=== PATIENT | male | born 1960 | race Hispanic/Latino ===

== ENCOUNTER 2019-07-28 21:34 | Emergency (ER) | payer OTHER ==
[2019-07-28 22:03] LABS: BASOPHILS % (AUTO) 0.3 % (0.0-5.0); EOSINOPHILS % (AUTO) 0.6 % (0.0-8.0); HEMATOCRIT 46.4 % (42-54); LYMPHOCYTES % (AUTO) 13.7 % (21.0-51.0); MEAN CORPUSCULAR HEMOGLOBIN 31.9 pg (27.0-33.0); MEAN CORPUSCULAR HGB CONC 34.7 g/dL (32.0-36.0); MEAN CORPUSCULAR VOLUME 92.1 fL (79-99); MONOCYTES % (AUTO) 3.8 % (3.0-13.0); NEUTROPHILS % (AUTO) 81.6 % (40.0-77.0); NUCLEATED RED BLOOD CELLS 0.1 % (0.0-0.19); PLATELET COUNT (AUTO) 236 K/uL (130-400); RED BLOOD CELL COUNT(AUTO) 5.04 MIL/uL (4.50-6.20); RED CELL DISTRIBUTION WIDTH 12.6 % (11.0-15.5); WHITE BLOOD COUNT (AUTO) 10.7 K/uL (4.8-10.8)
[2019-07-28] MEDS ORDERED: ONDANSETRON HCL 4 MG/2 ML VIAL ONE (22:09)
[2019-07-28] MEDS ORDERED: ASPIRIN 325 MG TABLET ONE (22:10)
[2019-07-28 22:12] LABS: CREATININE 1.2 mg/dL (0.5-1.5); POTASSIUM 3.8 mmol/L (3.5-5.1)
[2019-07-28 22:14] LABS: AMYLASE 84 U/L (25-115); LIPASE 301 U/L (114-286)
[2019-07-28 22:17] LABS: ALBUMIN 3.4 g/dL (3.5-5.0); BILIRUBIN,TOTAL 0.8 mg/dL (0.2-1.0); INR 0.95 (0.85-1.15); PARTIAL THROMBOPLASTIN TIME 21.7 SEC (26.3-35.5); TOTAL PROTEIN, SERUM 7.4 g/dL (6.0-8.3)
[2019-07-28] MEDS ORDERED: SODIUM CHLORIDE 0.9% 1000ML 2,000 ML IV ONE (22:59)
[2019-07-28] MEDS ORDERED: FAMOTIDINE/PF 20 MG/2 ML VIAL IV ONE (23:02)
[2019-07-28] MEDS ORDERED: METOCLOPRAMIDE 10 MG/2 ML VIAL ONE (23:02)
== END 2019-07-29 00:45 | disposition home or self-care (01) ==
LOC: EDH 21:34
DX: T67.6XXA Heat fatigue, transient, initial encounter (principal); E86.9 Volume depletion, unspecified; R10.13 Epigastric pain; R11.2 Nausea with vomiting, unspecified; X58.XXXA Exposure to other specified factors, initial encounter; Y93.89 Activity, other specified; Y92.89 Other specified places as the place of occurrence of the external cause; Y99.8 Other external cause status
CPT/HCPCS: 36415; 71045; 80053; 82150; 82550; 83690; 84484; 85025; 85610; 85730; 93005; 96361; 96374; 96375; 99285; J2405; J2765; J3490; J7030

== ENCOUNTER 2022-07-31 05:45 | Emergency (ER) | payer OTHER ==
[~2022-07-31] VITALS: Ht 167.6 cm; Wt 91.6 kg
[2022-07-31 06:46] LABS: BASOPHILS % (AUTO) 0.5 % (0.0-5.0); EOSINOPHILS % (AUTO) 2.2 % (0.0-8.0); HEMATOCRIT 48.5 % (42-54); LYMPHOCYTES % (AUTO) 24.3 % (21.0-51.0); MEAN CORPUSCULAR HEMOGLOBIN 32.4 pg (27.0-33.0); MEAN CORPUSCULAR HGB CONC 35.1 g/dL (32.0-36.0); MEAN CORPUSCULAR VOLUME 92.4 fL (79-99); MONOCYTES % (AUTO) 7.9 % (3.0-13.0); NEUTROPHILS % (AUTO) 64.9 % (40.0-77.0); PLATELET COUNT (AUTO) 230 K/uL (130-400); RED BLOOD CELL COUNT(AUTO) 5.25 MIL/uL (4.50-6.20); RED CELL DISTRIBUTION WIDTH 12.8 % (11.0-15.5); WHITE BLOOD COUNT (AUTO) 9.4 K/uL (4.8-10.8)
[2022-07-31 06:50] LABS: ALBUMIN 3.4 g/dL (3.5-5.0); CREATININE 1.2 mg/dL (0.5-1.5); POTASSIUM 3.7 mmol/L (3.5-5.1); TOTAL PROTEIN, SERUM 6.7 g/dL (6.0-8.3)
[2022-07-31 07:52] VITALS: BP 144/70
[2022-07-31] MEDS ORDERED: TAMS-1 PO (11:22)
[2022-07-31] MEDS ORDERED: NAPR375T6 PO (11:22)
== END 2022-07-31 11:40 | disposition home or self-care (01) ==
LOC: EDH 05:45
DX: N20.0 Calculus of kidney (principal)
CPT/HCPCS: 36415; 71045; 74018; 74176; 80053; 84484; 85025; 93005

== ENCOUNTER 2023-06-23 04:24 | Emergency (ER) | payer OTHER ==
[~2023-06-23] VITALS: Ht 167.6 cm; Wt 88.5 kg
[~2023-06-23 04:24] MED LIST: NAPR375T6 PO; TAMS-1 PO
[2023-06-23] MEDS ORDERED: ONDANSETRON 4MG INJ ONE (04:40)
[2023-06-23] MEDS ORDERED: MORPHINE 4 MG SYG ONE (04:40)
[2023-06-23 04:47] LABS: BASOPHILS # (AUTO) 0.04 K/uL (0.00-0.20); BASOPHILS % (AUTO) 0.4 % (0.0-5.0); EOSINOPHILS % (AUTO) 1.9 % (0.0-8.0); HEMATOCRIT 52.5 % (42-54); IMMATURE GRANULOCYTE ABSOLUTE 0.03 K/uL (0-1); LYMPHOCYTES # (AUTO) 2.2 K/uL (1.0-4.8); LYMPHOCYTES % (AUTO) 20.4 % (21.0-51.0); MEAN CORPUSCULAR HEMOGLOBIN 31.5 pg (27.0-33.0); MEAN CORPUSCULAR HGB CONC 34.1 g/dL (32.0-36.0); MEAN CORPUSCULAR VOLUME 92.3 fL (79-99); MONOCYTES % (AUTO) 9.4 % (3.0-13.0); NEUTROPHILS # (AUTO) 7.3 K/uL (1.8-7.7); NEUTROPHILS % (AUTO) 67.6 % (40.0-77.0); PLATELET COUNT (AUTO) 247 K/uL (130-400); RED BLOOD CELL COUNT(AUTO) 5.69 MIL/uL (4.50-6.20); RED CELL DISTRIBUTION WIDTH 12.4 % (11.0-15.5); WHITE BLOOD COUNT (AUTO) 10.8 K/uL (4.8-10.8)
[2023-06-23 04:57] LABS: CREATININE 1.7 mg/dL (0.5-1.5); POTASSIUM 3.9 mmol/L (3.5-5.1)
[2023-06-23] MEDS ORDERED: ONDANSETRON 4MG INJ IVP ONE (05:00)
[2023-06-23] MEDS ORDERED: MORPHINE 4 MG SYG IVP ONE (05:00)
[2023-06-23] MEDS ORDERED: 0.9%NACL 1000ML 1,000 ML IV ONE (05:00)
[2023-06-23 05:02] LABS: ALBUMIN 3.9 g/dL (3.5-5.0); BILIRUBIN,TOTAL 0.8 mg/dL (0.2-1.0); TOTAL PROTEIN, SERUM 7.6 g/dL (6.0-8.3)
[2023-06-23 06:08] VITALS: BP 156/81; PULSE 74; RESP 16; O2SAT 97
[2023-06-23] MEDS ORDERED: KETOROLAC 30MG VIAL (30MG/ML) IVP ONE (09:00)
[2023-06-23] MEDS ORDERED: FAMOTIDINE 20MG VIAL IV ONE (09:00)
== END 2023-06-23 10:02 | disposition home or self-care (01) ==
LOC: EDH 04:24
DX: N20.0 Calculus of kidney (principal); Z79.899 Other long term (current) drug therapy; Z98.890 Other specified postprocedural states
CPT/HCPCS: 99285; 74176; 96374; 96375; 80053; 85025; 36415; J3490; J2405; J2270; J1885

== ENCOUNTER 2023-06-25 15:37 | Inpatient (IN) | payer OTHER ==
[~2023-06-25] VITALS: Ht 167.6 cm; Wt 87.5 kg
[2023-06-25 17:07] LABS: BASOPHILS # (AUTO) 0.03 K/uL (0.00-0.20); BASOPHILS % (AUTO) 0.2 % (0.0-5.0); EOSINOPHILS # (AUTO) 0.08 K/uL (0.00-0.70); EOSINOPHILS % (AUTO) 0.7 % (0.0-8.0); HEMATOCRIT 48.6 % (42-54); IMMATURE GRANULOCYTE ABSOLUTE 0.03 K/uL (0-1); LYMPHOCYTES # (AUTO) 1.5 K/uL (1.0-4.8); MEAN CORPUSCULAR HEMOGLOBIN 32.2 pg (27.0-33.0); MEAN CORPUSCULAR HGB CONC 35.2 g/dL (32.0-36.0); MEAN CORPUSCULAR VOLUME 91.5 fL (79-99); MONOCYTES % (AUTO) 7.8 % (3.0-13.0); NEUTROPHILS # (AUTO) 9.7 K/uL (1.8-7.7); NEUTROPHILS % (AUTO) 79.1 % (40.0-77.0); PLATELET COUNT (AUTO) 227 K/uL (130-400); RED BLOOD CELL COUNT(AUTO) 5.31 MIL/uL (4.50-6.20); RED CELL DISTRIBUTION WIDTH 12.3 % (11.0-15.5); WHITE BLOOD COUNT (AUTO) 12.3 K/uL (4.8-10.8)
[2023-06-25 17:15] LABS: CREATININE 1.5 mg/dL (0.5-1.5); POTASSIUM 3.8 mmol/L (3.5-5.1)
[2023-06-25 17:20] LABS: ALBUMIN 3.4 g/dL (3.5-5.0); BILIRUBIN,TOTAL 1.2 mg/dL (0.2-1.0); TOTAL PROTEIN, SERUM 7.1 g/dL (6.0-8.3)
[2023-06-25] MEDS ORDERED: KETOROLAC 15MG/ML VIAL (15MG/ML) IV ONE (21:30)
[2023-06-25] MEDS ORDERED: 0.9%NACL 1000ML 1,000 ML IV ONE (21:30)
[2023-06-25 21:34] LABS: APPEARANCE,URINE CLOUDY (CLEAR); BILIRUBIN,URINE NEGATIVE (NEGATIVE); COLOR,URINE YELLOW (YELLOW); GLUCOSE, URINE (UA) NEGATIVE (NEGATIVE); KETONES,URINE >=80 mg/dL (NEGATIVE); LEUKOCYTE ESTERASE ,URINE 75 Leu/uL (NEGATIVE); NITRATE,URINE NEGATIVE (NEGATIVE); OCCULT BLOOD,URINE LARGE (NEGATIVE); PH,URINE 5.5 (5.0-8.0); PROTEIN,URINE 30 mg/dL (NEGATIVE); UROBILINOGEN,URINE 0.2 mg/dL (0.2-1.0)
[2023-06-25 21:35] LABS: ADD UA MICROSCOPIC YES
[2023-06-25 21:50] LABS: BACTERIA,URINE RARE /HPF (None Seen); MUCUS,URINE RARE LPF (None Seen); OTHER CASTS, URINE 1 /LPF (None Seen); RBC,URINE TNTC /HPF (0-1); SQUAMOUS EPITHELIAL CELL,UR RARE /HPF (0-2); UNCLASSIFIED CRYSTAL 1 /HPF (None Seen); WBC,URINE 26-50 /HPF (0-1); YEAST,URINE BUDDING RARE /HPF (None Seen)
[2023-06-25] MEDS ORDERED: CEFTRIAXONE 1G VIAL IVPB ONE (22:30)
[2023-06-26] MEDS ORDERED: ONDANSETRON 4MG INJ IVP ONE (00:30)
[2023-06-26] MEDS ORDERED: MORPHINE 4 MG SYG IVP ONE (00:30)
[2023-06-26] MEDS ORDERED: ACETAMINOPHEN 325 MG TAB PO PRN ×2 (03:00)
[2023-06-26] MEDS ORDERED: CEFTRIAXONE 2GM VIAL IVPB SCH (03:00)
[2023-06-26] MEDS: MORPHINE 2 MG SYG IVP PRN ×3 (04:45→22:35)
[2023-06-26] MEDS: 0.9%NACL 1000ML 1,000 ML IV SCH (04:47)
[2023-06-26] MEDS ORDERED: KETOROLAC 30MG VIAL (30MG/ML) ONE (05:28)
[2023-06-26] MEDS ORDERED: KETOROLAC 30MG VIAL (30MG/ML) IVP ONE ×2 (05:30→06:00)
[2023-06-26 07:49] LABS: HEMATOCRIT 45.3 % (42-54); MEAN CORPUSCULAR HEMOGLOBIN 31.9 pg (27.0-33.0); MEAN CORPUSCULAR HGB CONC 33.8 g/dL (32.0-36.0); MEAN CORPUSCULAR VOLUME 94.6 fL (79-99); RED BLOOD CELL COUNT(AUTO) 4.79 MIL/uL (4.50-6.20); RED CELL DISTRIBUTION WIDTH 12.4 % (11.0-15.5); WHITE BLOOD COUNT (AUTO) 11.3 K/uL (4.8-10.8)
[2023-06-26 07:55] LABS: INR < 0.93 (0.85-1.15); PROTHROMBIN TIME 10.6 SEC (9.6-11.6)
[2023-06-26 07:57] LABS: PARTIAL THROMBOPLASTIN TIME 26.5 SEC (26.3-35.5)
[2023-06-26 08:07] LABS: BILIRUBIN,TOTAL 0.8 mg/dL (0.2-1.0); CREATININE 1.4 mg/dL (0.5-1.5); POTASSIUM 4.2 mmol/L (3.5-5.1); TOTAL PROTEIN, SERUM 6.5 g/dL (6.0-8.3)
[2023-06-26] MEDS: FAMOTIDINE 20MG TAB PO SCH (09:50)
[2023-06-26] MEDS ORDERED: TAMSULOSIN HCL 0.4 MG CAP.ER.24H PO ONE (10:30)
[2023-06-26] MEDS: CEFTRIAXONE 2GM VIAL IVPB SCH (21:00)
[2023-06-26 21:45] VITALS: BP 151/78; PULSE 61; RESP 20
[2023-06-27] VITALS (8 sets, daily range): BP systolic 137–160; BP diastolic 63–85; PULSE 58–69; RESP 20; O2SAT 97–98
[2023-06-27] MEDS ORDERED: KETOROLAC 15MG/ML VIAL (15MG/ML) ONE (00:25)
[2023-06-27] MEDS ORDERED: KETOROLAC 15MG/ML VIAL (15MG/ML) IV ONE (00:30)
[2023-06-27 04:06] LABS: BASOPHILS # (AUTO) 0.03 K/uL (0.00-0.20); BASOPHILS % (AUTO) 0.3 % (0.0-5.0); EOSINOPHILS # (AUTO) 0.23 K/uL (0.00-0.70); EOSINOPHILS % (AUTO) 2.2 % (0.0-8.0); HEMATOCRIT 43.1 % (42-54); IMMATURE GRANULOCYTE ABSOLUTE 0.03 K/uL (0-1); LYMPHOCYTES # (AUTO) 1.7 K/uL (1.0-4.8); LYMPHOCYTES % (AUTO) 16.4 % (21.0-51.0); MEAN CORPUSCULAR HEMOGLOBIN 31.7 pg (27.0-33.0); MEAN CORPUSCULAR HGB CONC 33.6 g/dL (32.0-36.0); MEAN CORPUSCULAR VOLUME 94.3 fL (79-99); MONOCYTES # (AUTO) 0.8 K/uL (0.1-1.0); MONOCYTES % (AUTO) 7.2 % (3.0-13.0); NEUTROPHILS # (AUTO) 7.7 K/uL (1.8-7.7); NEUTROPHILS % (AUTO) 73.6 % (40.0-77.0); PLATELET COUNT (AUTO) 185 K/uL (130-400); RED BLOOD CELL COUNT(AUTO) 4.57 MIL/uL (4.50-6.20); RED CELL DISTRIBUTION WIDTH 12.3 % (11.0-15.5); WHITE BLOOD COUNT (AUTO) 10.4 K/uL (4.8-10.8)
[2023-06-27 04:22] LABS: ALBUMIN 2.6 g/dL (3.5-5.0); BILIRUBIN,TOTAL 0.6 mg/dL (0.2-1.0); CREATININE 1.9 mg/dL (0.5-1.5); MAGNESIUM 2.1 mg/dL (1.80-2.40); POTASSIUM 4.1 mmol/L (3.5-5.1); TOTAL PROTEIN, SERUM 5.9 g/dL (6.0-8.3)
[2023-06-27] MEDS: FAMOTIDINE 20MG TAB PO SCH (09:40)
[2023-06-27] MEDS: HYDROMORPHONE 0.5 MG SYG (0.5MG/0.5ML) IVP PRN ×2 (09:40→18:05)
[2023-06-27] MEDS: TAMSULOSIN HCL 0.4 MG CAP.ER.24H PO SCH (09:40)
[2023-06-27] MEDS: CEFTRIAXONE 2GM VIAL IVPB SCH (20:06)
[2023-06-27] MEDS: 0.9%NACL 1000ML 1,000 ML IV SCH (20:13)
[2023-06-27] MEDS: ONDANSETRON 4MG INJ IV PRN (20:13)
[2023-06-27] MEDS ORDERED: MORPHINE 2 MG SYG IVP SCH (20:30)
[2023-06-28] VITALS (19 sets, daily range): BP systolic 130–181; BP diastolic 59–92; PULSE 60–90; RESP 17–21; O2SAT 93–96
[2023-06-28] MEDS: HYDROMORPHONE 0.5 MG SYG (0.5MG/0.5ML) IVP PRN ×2 (00:02→06:08)
[2023-06-28 05:52] LABS: BASOPHILS # (AUTO) 0.03 K/uL (0.00-0.20); BASOPHILS % (AUTO) 0.3 % (0.0-5.0); EOSINOPHILS # (AUTO) 0.19 K/uL (0.00-0.70); EOSINOPHILS % (AUTO) 1.8 % (0.0-8.0); HEMATOCRIT 47.4 % (42-54); IMMATURE GRANULOCYTE ABSOLUTE 0.03 K/uL (0-1); LYMPHOCYTES # (AUTO) 1.7 K/uL (1.0-4.8); LYMPHOCYTES % (AUTO) 16.7 % (21.0-51.0); MEAN CORPUSCULAR HEMOGLOBIN 31.5 pg (27.0-33.0); MEAN CORPUSCULAR HGB CONC 33.5 g/dL (32.0-36.0); MONOCYTES # (AUTO) 0.8 K/uL (0.1-1.0); MONOCYTES % (AUTO) 7.4 % (3.0-13.0); NEUTROPHILS # (AUTO) 7.7 K/uL (1.8-7.7); NEUTROPHILS % (AUTO) 73.5 % (40.0-77.0); PLATELET COUNT (AUTO) 195 K/uL (130-400); RED BLOOD CELL COUNT(AUTO) 5.04 MIL/uL (4.50-6.20); RED CELL DISTRIBUTION WIDTH 12.2 % (11.0-15.5); WHITE BLOOD COUNT (AUTO) 10.5 K/uL (4.8-10.8)
[2023-06-28 05:59] LABS: INR < 0.93 (0.85-1.15); PROTHROMBIN TIME 10.3 SEC (9.6-11.6)
[2023-06-28 06:01] LABS: PARTIAL THROMBOPLASTIN TIME 24.5 SEC (26.3-35.5)
[2023-06-28 06:10] LABS: BILIRUBIN,TOTAL 0.5 mg/dL (0.2-1.0); MAGNESIUM 2.2 mg/dL (1.80-2.40)
[2023-06-28] MEDS: FAMOTIDINE 20MG TAB PO SCH (08:49)
[2023-06-28] MEDS: 0.9%NACL 1000ML 1,000 ML IV SCH (09:29)
[2023-06-28] MEDS ORDERED: HYDROMORPHONE 1 MG INJ IVP ONE (09:30)
[2023-06-28] MEDS ORDERED: CEFU500T67 PO (09:39)
[2023-06-28] MEDS: ONDANSETRON 4MG INJ IV PRN ×2 (13:35→20:15)
[2023-06-28] MEDS ORDERED: HYDRALAZINE 20MG/ML VIAL IV ONE (14:00)
[2023-06-28] MEDS ORDERED: LIDOCAINE HCL 1% MDV 50ML VIAL ONE (17:27)
[2023-06-28] MEDS ORDERED: FENTANYL CITRATE PF 50 MCG/1 ML 2ML VIAL ONE (17:27)
[2023-06-28] MEDS ORDERED: MIDAZOLAM HCL 1 MG/ML 2ML VIAL ONE (17:27)
[2023-06-28] MEDS ORDERED: IOHEXOL-350 50ML VIAL IV ONE (17:27)
[2023-06-28] MEDS ORDERED: ONDANSETRON 4MG INJ ONE (17:27)
[2023-06-28] MEDS: CEFTRIAXONE 2GM VIAL IVPB SCH (20:04)
[2023-06-28] MEDS: TAMSULOSIN HCL 0.4 MG CAP.ER.24H PO SCH (20:04)
[2023-06-28] MEDS ORDERED: CLONIDINE HCL 0.1 MG TABLET PO ONE (20:30)
[2023-06-29 04:28] VITALS: BP 140/58; PULSE 74; RESP 20
[2023-06-29] MEDS ORDERED: BISACODYL 10 MG SUPP.RECT RC ONE (05:00)
[2023-06-29] MEDS ORDERED: LACTULOSE 20 GM/30 ML UDCUP PO PRN (05:00)
[2023-06-29 07:41] VITALS: BP 159/82; PULSE 78; RESP 16
[2023-06-29 08:00] VITALS: O2SAT 92
[2023-06-29] MEDS: FAMOTIDINE 20MG TAB PO SCH (08:22)
[2023-06-29] MEDS: TAMSULOSIN HCL 0.4 MG CAP.ER.24H PO SCH (08:22)
[2023-06-29 11:03] VITALS: BP 155/88; PULSE 80; RESP 16
[2023-06-29] MEDS ORDERED: AMLO5TAB4 PO (11:50)
[2023-06-29] MEDS ORDERED: AMLODIPINE 5 MG TAB PO ONE (12:00)
== END 2023-06-29 12:45 | disposition home or self-care (01) | DRG 690 ==
LOC: EDH 15:37 → EDHIP 06-26 02:36 → 4CH 06-26 21:45
PROVIDERS: ADMIT Hospitalist; ATTEND Hospitalist
PROC: 0T9030Z Drainage of Right Kidney with Drainage Device, Percutaneous Approach (ICD-10-PCS; principal; 2023-06-28)
DX: N13.6 Pyonephrosis (principal); N17.0 Acute kidney failure with tubular necrosis; I10 Essential (primary) hypertension; K57.30 Diverticulosis of large intestine without perforation or abscess without bleeding; K59.00 Constipation, unspecified; N40.0 Benign prostatic hyperplasia without lower urinary tract symptoms; Z87.442 Personal history of urinary calculi; Z93.6 Other artificial openings of urinary tract status
CPT/HCPCS: 36415; 50432; 74176; 80053; 81001; 82948; 83735; 84145; 84153; 85025; 85027; 85610; 85730; 87071; 87088; 87205; 99156; 99157; C1894; G0378; J0360; J0696; J1170; J1644; J1885; J2250; J2270; J2405; J3010; J3490; J7030; Q9967; C1729

== ENCOUNTER → 2023-07-09 | Outpatient (CLI) | payer OTHER ==
[~2023-07-09] MED LIST changes: +AMLO5TAB4 PO; +CEFU500T67 PO
== END | disposition home or self-care (01) ==
LOC: RAH 14:14
PROVIDERS: ATTEND Physician Assistant Medical
DX: N20.0 Calculus of kidney (principal); M47.815 Spondylosis without myelopathy or radiculopathy, thoracolumbar region
CPT/HCPCS: 74018; 76100

== ENCOUNTER 2023-07-16 15:01 | Emergency (ER) | payer OTHER ==
[~2023-07-16] VITALS: Ht 167.6 cm; Wt 83.9 kg
[2023-07-16 15:45] VITALS: BP 160/79; PULSE 72; RESP 16; O2SAT 98
== END 2023-07-16 22:41 | disposition home or self-care (01) ==
LOC: EDH 15:01
DX: T83.032A Leakage of nephrostomy catheter, initial encounter (principal); Z79.899 Other long term (current) drug therapy
CPT/HCPCS: 99281

== ENCOUNTER → 2023-08-22 | Outpatient (CLI) | payer OTHER | END | disposition home or self-care (01) | LOC: RAH 10:46 | PROVIDERS: ATTEND Urology | DX: N20.0 Calculus of kidney (principal); N20.1 Calculus of ureter; M47.815 Spondylosis without myelopathy or radiculopathy, thoracolumbar region; Z96.0 Presence of urogenital implants | CPT/HCPCS: 74018; 76100 ==

== ENCOUNTER → 2024-11-18 | Outpatient (CLI) | payer OTHER ==
[~2024-11-18] MED LIST changes: +NAPR-1505 PO; -NAPR375T6 PO
--- NOTE | 2024-11-18 13:58 | HMCIMG ---
CT HEART SAVER PROMOTIONAL HISTORY: Calcium scoring COMPARISON: None TECHNIQUE: Computed tomography of the heart was performed with ECG gating and suspended respiration. Postprocessing was performed on a computer workstation to obtain diastolic phase images, determine calcium score and provide a quantitative assessment of extent of disease. This CT included only the heart. HeartSaver score is 0.0. Please see cardiac calcium score report. The available CT chest images show no acute finding. A small hiatal hernia is seen. CT was performed with one or more following dose reduction techniques: automated exposure control, adjustment of the mA and kv according to patient's size, or use of a iterative reconstruction technique.
== END | disposition home or self-care (01) ==
LOC: RAH 10:38
PROVIDERS: ATTEND Internal Medicine Cardiovascular Disease
DX: Z13.6 Encounter for screening for cardiovascular disorders (principal)
CPT/HCPCS: 75571

== ENCOUNTER → 2024-12-09 | Outpatient (CLI) | payer OTHER ==
--- NOTE | 2024-12-10 08:08 | HMCSR ---
APPROVED REPORT EXAM: Two-dimensional and M-mode echocardiogram with Doppler and color Doppler. INDICATION ICD: R06.00 Dyspnea 2D Dimensions RVDd3.8 cmLVEF(%)58.9 (>50%)LVED Vol(simp.)101.0 mL IVSd1.0 (0.7-1.1cm)FS(%)31 %LVES Vol(simp.)42.0 mL LVDd4.2 (3.8-5.6cm)Ao Root(2D)3.4 (2.0-3.7cm)LVEF(%, simp.)58 % PWd1.0 (0.7-1.1cm)LVOT diam1.9 (1.8-2.4cm)LA ESV INDEX (BP)29.79 mL/m2 LVDs2.9 (2.5-4.0cm)IVC diam1.9 cm Aortic Valve AoV Vmax1.2 m/Nicole Peak GR6.2 mmHgLVOT Vmax1.1 m/s AoV VTI0.3 mAo Mean GR3.6 mmHgLVOT VTI0.25 m RUCHI (VMAX)2.7 cm2Al P1/2T804 msAVA (VTI) 2.7 cm2 Mitral Valve MV E Vmax80.6 cm/sDECEL Esdt011 ms MV A Vmax63.3 cm/sP 1/2 T41 ms E/A ratio1.3MVA (PHT)5.4 cm2 TDI E/E' Gtqohi91.2E/E' Lateral9.7 Pulmonary Valve PV Vmax1.2 m/sPV VTI0.28 mPV Mean GR3 mmHg PV Peak GR5.5 mmHg Tricuspid Valve TR Vmax2.0 m/sRAP (EST) 8 okAqQRZA70.4 mmHg TR Peak GR16.4 mmHg Left Ventricle Left ventricular cavity size is normal. There is normal LV segmental wall motion. There is normal lef t ventricular wall thickness. LVEF is 55-60%. No left ventricle thrombus noted on this study. Left ve ntricular filling pattern is normal for age. Right Ventricle The right ventricle is normal size. The right ventricular systolic function is normal. Atria The left atrium size is normal. The right atrium size is normal. Aortic Valve Aortic valve is trileaflet. Aortic valve leaflets are sclerotic but open well. Trace aortic regurgita tion. There is no aortic valvular stenosis. Mitral Valve The mitral valve is mildly thickened. Mitral regurgitation is trace. There is no mitral valve stenosi s. Tricuspid Valve The tricuspid valve leaflets appear normal. There is trace to mild tricuspid regurgitation. Pulmonic Valve The pulmonic valve leaflets are thin and pliable; valve motion is normal. There is trace pulmonic amanda vular regurgitation. Great Vessels The aortic root is normal in size. IVC is dilated and collapses >50% with inspiration. Pericardium Trivial pericardial effusion seen posteriorly. Pericardium appears moderately thickened. Conclusion Left ventricular cavity size is normal. LVEF is 55-60%. There is normal LV segmental wall motion. The right ventricle is normal size. The left atrium size is normal. Aortic valve is trileaflet. Aortic valve leaflets are sclerotic but open well. Trace aortic regurgitation. The mitral valve is mildly thickened. Mitral regurgitation is trace. There is no mitral valve stenosis. There is trace to mild tricuspid regurgitation. There is trace pulmonic valvular regurgitation. The aortic root is normal in size. IVC is dilated and collapses >50% with inspiration. Trivial pericardial effusion seen posteriorly. Pericardium appears moderately thickened.
== END | disposition home or self-care (01) ==
LOC: SHCH 15:45
PROVIDERS: ATTEND Internal Medicine Cardiovascular Disease
DX: I08.3 Combined rheumatic disorders of mitral, aortic and tricuspid valves (principal); R06.00 Dyspnea, unspecified
CPT/HCPCS: 93306

== ENCOUNTER 2025-05-19 10:14 | Observation (INO) | payer OTHER ==
[~2025-05-19] VITALS: Ht 167.6 cm; Wt 86.5 kg
[~2025-05-19 10:14] MED LIST changes: -TAMS-1 PO; +TAMS-55 PO
[2025-05-19] MEDS: 0.9%NACL 1000ML 1,000 ML IV ONE (10:53)
--- NOTE | 2025-05-19 10:54 | EKG ---
[facility] Test Date: 2025-05-19 Test Time: 10:50:03 Pat Name: PAYTON GILL Department: ED Room: Gender: M Supervisor Inventory Merchandising: [facility] : 1960 Requested By: ANALIA FOX Order Number: [id number] Reading MD: Boris Suarez Measurements Intervals [place] Rate: 54 P: 55 GA: 183 QRS: -28 QRSD: 96 T: 22 QT: 434 QTc: 411 Interpretive Statements Sinus rhythm Low voltage, precordial leads Compared to ECG 07/31/2022 06:33:43 Low QRS voltage now present Left-axis deviation no longer present Electronically Signed On 05-19-2025 12:03:46 CDT by Boris Suarez Please click the below link to view image of tracing.
[2025-05-19 10:59] LABS: IMMATURE GRANULOCYTE ABSOLUTE 0.03 K/uL (0-1); NUCLEATED RED BLOOD CELLS 0.0 % (0.0-0.19); PLATELET COUNT (AUTO) 206 K/uL (130-400); RED BLOOD CELL COUNT(AUTO) 5.25 MIL/uL (4.50-6.20); RED CELL DISTRIBUTION WIDTH 11.8 % (11.0-15.5); WHITE BLOOD COUNT (AUTO) 7.6 K/uL (4.8-10.8)
--- NOTE | 2025-05-19 11:09 | ERN ---
General Chief Complaint: Dizzy/Light Headed Stated Complaint: DIZZY, NAUSEA, GBW Time Seen by MD: 10:19 Source: patient History of Present Illness Initial Comments Mr. Shipman is 64-year-old male presented to the emergency department with symptoms of dizziness and vertigo. He reports that he felt the room around him spinning when he woke up from bed in the morning. Patient subsequently went to work but felt increasingly uneasy. Patient reports feeling dizzy, lightheaded, and nauseous. Patient's reports the dizziness worsens when he gets up from sitting or sleeping lying down for a while. Patient also reports that he has not been drinking enough water and feels dehydrated. Patient denies palpitations, chest pain, fever, cough, runny nose. Allergies: Coded Allergies: No Known Drug Allergies (Verified Allergy, Unknown, 05/25/17) Home Meds Active Scripts Diazepam (Valium) 2 Mg Tablet, 1 TAB PO TIDP PRN for dizziness for 5 Days, #15 TAB 0 Refills Prov:DARWIN WALL DO 05/19/25 Meclizine HCl (Medi-Meclizine) 25 Mg Tablet, 1 TAB PO TID for dizziness for 10 Days, #30 TAB 0 Refills Prov:DARWIN WALL DO 05/19/25 Amlodipine Besylate (Norvasc 5Mg Tab) 5 Mg Tablet, 5 MG PO DAILY for 30 Days, #30 TAB Prov:MAHESH VIRGEN NP 06/29/23 Cefuroxime Axetil (Cefuroxime) 500 Mg Tablet, 500 MG PO BID for 5 Days, #10 TAB Prov:MAHESH VIRGEN NP 06/28/23 Tamsulosin HCl (Flomax) 0.4 Mg Cap.er.24h, 0.4 MG PO DAILY for 7 Days, #7 CAPSULE. Prov:CARTER ELLIOTT MD 07/31/22 Naproxen (Naproxen) 375 Mg Tablet., 375 MG PO BID for 7 Days, #14 TAB Prov:CARTER ELLIOTT MD 07/31/22 Past Medical History Past Medical History: GERD Past Surgical History: Other Surgical History Other: UMBILICAL HERNIA REPAIR Family History Family History: Negative Social History Social History: Negative, Lives with family ROS Dictation CONSTITUTIONAL: No chills, no fever, no weakness, no diaphoresis, no malaise. HEAD/FACE: No signs of trauma. EENT: No eye pain, no blurred vision, no tearing, no double vision, no ear pain, no ear discharge, no nose pain, no nasal congestion, no throat pain, no throat swelling, no mouth pain. RESPIRATORY: No SOB, no cough, no wheezing, no PND, no orthopnea. CARDIOVASCULAR: No chest pain, no edema, no palpitations, no syncope. GASTROINTESTINAL/ABDOMINAL: No abdominal pain, no constipation, no diarrhea, no nausea, no vomiting. GENITOURINARY: No abnormal discharge, no dysuria, no frequent urination, no hematuria. No complaints of pain in the genitals. MUSCULOSKELETAL: No back pain, no gout, no joint pain, no joint swelling, no muscle pain, no muscle stiffness, no neck pain. INTEGUMENTARY: No change in color, no change in hair/nails, no dryness, no lesion, no lumps, no rash. NEUROLOGICAL/PSYCH: No anxiety, not depressed, no emotional problem, no headache, no numbness, no pre-existing deficit, no history of seizures, no tremors, no weakness. HEMATOLOGIC/LYMPHATIC: Not anemic, no history of blood clots, no apparent bleeding, no bruising, glands not swollen. All Systems Negative, Except as Noted. Physical Exam Physical Exam Dictation VITAL SIGNS: Reviewed. GENERAL APPEARANCE: Alert, oriented x3 HEAD AND FACE: Non-traumatic. EYES: PERRL, pink conjunctivas, eyelid no trauma, anterior chamber clear. EARS: Pinnas intact and no signs of trauma or erythema. Ear canals clear and no discharge. TMs no erythema. NOSE: No discharge, no bleeding. OROPHARYNX: Mouth normal, teeth no caries, tongue pink. Pharynx clear, no erythema. Tonsils no exudates, no abscesses noted. Mucous membrane moist. NECK: Supple, non-tender, no thyromegaly, no masses, no JVD, no bruits. BREAST: Deferred. CHEST: No tenderness, no crepitus, no paradoxical movement, no retractions. LUNGS: Clear, well-ventilated, symmetric, no rales, no wheezing, no rhonchi, no stridor, good breath sounds bilaterally. HEART: Regular rate, regular rhythm, no murmur, no gallops. VASCULAR: No peripheral edema. ABDOMEN: Soft, positive bowel sounds, nondistended, no guarding, nontender, no rebound, no masses no hepatomegaly, no splenomegaly, no Perry's sign, no luke ias. RECTAL: Deferred. GENITAL: Deferred. NEUROLOGICAL: Normal speech, gross motor function intact, gross sensory function intact. MUSCULOSKELETAL: Neck nontender, full range of motion, back nontender, full range of motion. EXTREMITIES: Nontender, full range of motion. SKIN: Color pink, dry, no turgor, no rash, no lacerations, no abrasions, no contusions. LYMPHATICS: Deferred. NIH STROKE SCALE: NIH STROKE SCALE Response (Comments) Value Level of Consciousness Alert 0 Ask patient month and their age Answers both correct 0 Command to open eyes, make fist and let go Obeys both correct 0 Best gaze (horizontal eye movement) Normal 0 Visual Field Testing No Visual Field Loss 0 Facial Paresis Normal / Symmetrical 0 Motor Function - Left Arm Normal 0 Motor Function - Right Arm Normal 0 Motor Function - Left Leg Normal 0 Motor Function - Right Leg Normal 0 Limb Ataxia No Ataxia 0 Sensory-pin prick to arms, legs, trunk and face Normal 0 Best Language (describe picture, name items and read) No Aphasia 0 Dysarthria (read several words) Normal Articulation 0 Extinction and Inattention Normal 0 Total 0 Results Laboratory and Microbiology Lab and Micro Result Laboratory Tests Test 05/19/25 10:48 05/19/25 10:57 White Blood Count 7.6 K/uL (4.8-10.8) Red Blood Count 5.25 MIL/uL (4.50-6.20) Hemoglobin 16.7 g/dL (14.0-18.0) Hematocrit 48.1 % (42-54) Mean Corpuscular Volume 91.6 fL (79-99) Mean Corpuscular Hemoglobin 31.8 pg (27.0-33.0) Mean Corpuscular Hemoglobin Concent 34.7 g/dL (32.0-36.0) Red Cell Distribution Width 11.8 % (11.0-15.5) Platelet Count 206 K/uL (130-400) Mean Platelet Volume 10.2 fL (7.5-10.5) Immature Granulocyte % (Auto) 0.4 % (0-1) Neutrophils (%) (Auto) 73.0 % (40.0-77.0) Lymphocytes (%) (Auto) 19.1 % (21.0-51.0) L Monocytes (%) (Auto) 5.5 % (3.0-13.0) Eosinophils (%) (Auto) 1.7 % (0.0-8.0) Basophils (%) (Auto) 0.3 % (0.0-5.0) Neutrophils # (Auto) 5.5 K/uL (1.8-7.7) Lymphocytes # (Auto) 1.5 K/uL (1.0-4.8) Monocytes # (Auto) 0.4 K/uL (0.1-1.0) Eosinophils # (Auto) 0.13 K/uL (0.00-0.70) Basophils # (Auto) 0.02 K/uL (0.00-0.20) Absolute Immature Granulocyte (auto 0.03 K/uL (0-1) Nucleated Red Blood Cells 0.0 % (0.0-0.19) Sodium Level 139 mmol/L (136-145) Potassium Level 4.1 mmol/L (3.5-5.1) Chloride Level 104 mmol/L (101-111) Carbon Dioxide Level 30 mmol/L (21-32) Blood Urea Nitrogen 15 mg/dL (7-18) Creatinine 1.1 mg/dL (0.5-1.3) Glomerular Filtration Rate Calc 75 mL/min (>90) Random Glucose 125 mg/dL (70-105) H Hemoglobin A1c 5.8 % (4.0-6.0) Estimated Average Glucose (eAG) 120 mg/dL (70-126) Total Calcium 8.7 mg/dL (8.5-10.1) Troponin I High Sensitivity 9 ng/L (4-75) C-Reactive Protein, Quantitative 4.60 mg/L (0.5-3.0) H Procalcitonin < 0.05 ng/mL (0.05-0.5) L Thyroid Stimulating Hormone (TSH) 2.63 uIU/mL (0.36-3.74) Urine Color LIGHT-YELLOW (YELLOW) Urine Appearance CLEAR (CLEAR) Urine pH 6.0 (5.0-8.0) Urine Specific [place] 1.020 (1.001-1.031) Urine Protein NEGATIVE mg/dL (NEGATIVE) Urine Glucose (UA) NEGATIVE mg/dL (NEGATIVE) Urine Ketones NEGATIVE mg/dL (NEGATIVE) Urine Occult Blood NEGATIVE (NEGATIVE) Urine Nitrate NEGATIVE (NEGATIVE) Urine Bilirubin NEGATIVE mg/dL (NEGATIVE) Urine Urobilinogen 0.2 mg/dL (0.2-1.0) Urine Leukocyte Esterase NEGATIVE Carrie/uL Urine RBC 0-1 /HPF (0-1) Urine WBC 0-1 /HPF (0-1) Urine Bacteria None /HPF (None Seen) MDM Chief complaint: Pt presented with symptoms suggestive of vertigo since today morning. Pt's last known well was yesterday night when he went to bed. Pt woke up this morning with these symptoms, and were intermittent in nature. Pt could go to work, but felt more episodes of dizziness and vertigo that prompted the ER visit. Comorbidities: Pt has prior history of similar symptoms 5 years ago. Known HTN not on medication. Vitals: BP was in 180s SBP initially but came down to 140s SBP. Other vitals were stable. Physical Exam: NIHSS = 0, unremarkable physical findings. Normal speech, well oriented to time place and person. No sensory or motor deficits noted. Differential diagnosis: Presentation is mostly consistent with Vertigo, however the CT brain showed Ill-defined hypodense area in the right temporal lobe, possibly artifactual versus acute infarct. Recommend MRI for further evaluation.. Labs were unremarkable and EKG was normal. CT brain w/o contrast showed Ill- defined hypodense area in the right temporal lobe, possibly artifactual versus acute infarct. Recommend MRI for further evaluation. TREATMENT: Pt was treated with Aspirin 325mg, Meclizine 25mg, Diazepam 5 mg, Zofran 4mg, and 1 litre of NS. PLAN: Admit the patient to floor to do a stroke workup with MRI brain w/o contrast and CT angiography of Head and neck. The CT scan showed an abnormal finding concerning for possible heat stroke. I discussed this with the admitting hospitalist. We did not currently had neurology this facility, so we agreed to get an MRI to ensure there was no actual stroke. The MRI was unremarkable. CTs were unremarkable. Patient will be admitted for vertigo/dizziness workup. ED Course Orders Procedure Category Date Status Time Cbc With Differential LAB 05/19/25 Complete 10:34 Basic Metabolic Panel LAB 05/19/25 Complete 10:34 Urinalysis LAB 05/19/25 Complete W/Microscopic 10:34 Ct Head/Brain W/O CT 05/19/25 Resulted Contrast 10:34 12 Lead Ekg Tracing- EKG 05/19/25 Resulted Technical 10:34 Troponin I High LAB 05/19/25 Complete Sensitivity 10:34 Meclizine Hcl 25 Mg PHA 05/19/25 Complete (Antivert 25 Mg) 11:00 0.9%Nacl 1000ml (Ns PHA 05/19/25 Complete 1000ml) 11:00 Ondansetron 4mg Inj PHA 05/19/25 Complete (Zofran 4mg Inj) 12:00 Diazepam 5 Mg/Ml 2 Ml PHA 05/19/25 Complete Syg (Valium 5 Mg/M 12:00 Vital Signs(Adult CPOE 05/19/25 Transmitted Hospitalist) 13:41 Nurse To Enter Home CPOE 05/19/25 Transmitted Medication 13:41 Mr Brain Wo Con MRI 05/19/25 Resulted 13:35 Aspirin 325mg Tab PHA 05/19/25 Complete (Aspirin 325mg Tab) 14:00 Ct Angio Head And Neck CT 05/19/25 Resulted 13:51 Iohexol (Omnipaque) PHA 05/19/25 Complete 16:15 *Nursing CPOE 05/19/25 Transmitted Communication: 17:45 Meclizine Hcl 25 Mg PHA 05/19/25 Complete (Antivert 25 Mg) 18:30 Diazepam 5 Mg/Ml 2 Ml PHA 05/19/25 Complete Syg (Valium 5 Mg/M 18:30 Current Medications Medications (Trade) Dose Ordered Sig/Nu Route PRN Reason Start Time Stop Time Status Last Admin Dose Admin Aspirin (Aspirin 325mg Tab) 325 mg ONCE ONCE PO 05/19/25 14:00 05/19/25 14:01 DC 05/19/25 13:48 Diazepam (VALium 5 MG/ML 2 ML SYG) 5 mg ONCE ONCE IVP 05/19/25 12:00 05/19/25 12:01 DC 05/19/25 11:47 Diazepam (VALium 5 MG/ML 2 ML SYG) 5 mg ONCE ONCE IVP 05/19/25 18:30 05/19/25 18:31 DC Iohexol (Omnipaque) 75 ml STK-MED ONCE IV 05/19/25 16:15 05/19/25 16:15 DC Meclizine HCl (ANTIvert 25 mg) 25 mg ONCE ONCE PO 05/19/25 11:00 05/19/25 11:01 DC 05/19/25 10:47 Meclizine HCl (ANTIvert 25 mg) 25 mg ONCE ONCE PO 05/19/25 18:30 05/19/25 18:31 DC Ondansetron HCl (zoFRAN 4MG INJ) 4 mg ONCE ONCE IVP 05/19/25 12:00 05/19/25 12:01 DC 05/19/25 11:42 Sodium Chloride 1,000 ml @ 0 mls/hr ONCE ONCE IV 05/19/25 11:00 05/19/25 11:01 DC 05/19/25 10:53 Vital Signs Date Time Temp Pulse Resp B/P (MAP) Pulse Ox O2 Delivery O2 Flow Rate FiO2 05/19/25 17:59 97.9 59 16 123/69 96 Room Air* 0 05/19/25 11:32 55 16 167/82 99 Room Air* 0 05/19/25 10:19 97.7 55 18 187/73 96 0 DX & DISP Disposition: Inpatient (Hospitalist) Departure Impression: Primary Impression: Vertigo Condition: Stable Scripts Diazepam (Valium) 2 Mg Tablet 1 TAB PO TIDP PRN for dizziness for 5 Days, #15 TAB 0 Refills Prov: DARWIN WALL DO 05/19/25 Meclizine HCl (Medi-Meclizine) 25 Mg Tablet 1 TAB PO TID for dizziness for 10 Days, #30 TAB 0 Refills Prov: DARWIN WALL DO 05/19/25 Referrals: EYDTA SOTO (PCP) RADHA MACIAS MD May 19, 2025 11:09 DARWIN WALL DO May 19, 2025 18:19
[2025-05-19 11:10] LABS: CREATININE 1.1 mg/dL (0.5-1.3); GLOMERULAR FILTR. RATE CALC 75.0 mL/min (>90); GLUCOSE,RANDOM 125.0 mg/dL (70-105); SODIUM SERUM 139.0 mmol/L (136-145); UREA NITROGEN, BLOOD 15.0 mg/dL (7-18)
[2025-05-19 11:21] LABS: APPEARANCE,URINE CLEAR (CLEAR); GLUCOSE, URINE (UA) NEGATIVE (NEGATIVE); LEUKOCYTE ESTERASE ,URINE NEGATIVE Leu/uL (NEGATIVE); NITRATE,URINE NEGATIVE (NEGATIVE); OCCULT BLOOD,URINE NEGATIVE (NEGATIVE)
--- NOTE | 2025-05-19 11:51 | NUR ---
PT UNABLE TO TOLERATE CT EXAM. TWO ATTEMPTS MADE. PT UNABLE TO LAY FLAT, IMMEDIATELY HAS NAUSEA AND VOMITING. RETURNED TO ER WAITING FURTHER INSTRUCTIONS.
--- NOTE | 2025-05-19 13:09 | HMCIMG ---
EXAM: CT Head Without IV contrast. CLINICAL HISTORY: Dizziness, lightheaded TECHNIQUE: Axial computed tomography images of the head/brain without intravenous contrast. COMPARISON: Study dated 18/11/2024 FINDINGS: BRAIN: An ill-defined hypodense area in the right temporal lobe possibility of artifact more likely than an acute infarct. Dilatation of the ventricular system with prominence of basal cisterns, sulci, and cerebellar folia, suggestive of cerebral and cerebellar atrophic changes. No evidence of acute hemorrhage. No mass lesion. No midline shift or extra-axial collections. ORBITS: The orbits are unremarkable. SINUSES AND MASTOIDS: The paranasal sinuses and mastoid air cells are clear. BONES: No fracture. SOFT TISSUES: Unremarkable. IMPRESSION: 1. Ill-defined hypodense area in the right temporal lobe, possibly artifactual versus acute infarct. Recommend MRI for further evaluation. 2. No acute intracranial hemorrhage or mass effect /[place]
[2025-05-19] MEDS: ASPIRIN 325MG TAB PO ONE (13:48)
--- NOTE | 2025-05-19 14:46 | NUR ---
BACK FROM MRI
--- NOTE | 2025-05-19 16:03 | HMCIMG ---
EXAM: MR Brain without Intravenous Contrast. CLINICAL HISTORY: 64-year-old male with stroke-like symptoms. TECHNIQUE: Magnetic resonance images of the brain without intravenous contrast in multiple planes. CONTRAST: None. COMPARISON: CT Brain 05/19/2025. FINDINGS: BRAIN: No restricted diffusion to indicate acute infarction. No intracranial mass or hemorrhage. No midline shift or extra-axial fluid collection. No cerebellar tonsillar ectopia. No abnormal enhancement. The central arterial and venous flow voids are patent. VENTRICLES: No hydrocephalus. ORBITS: The orbits are normal. SINUSES AND MASTOIDS: The sinuses and mastoid air cells are clear. BONES: No acute fracture or focal osseous lesion. The right temporal lobe finding mentioned on the CT Brain 05/19/2025 is not appreciated on the MRI brain. IMPRESSION: 1. No evidence of acute infarction, intracranial mass, or hemorrhage. 2. Right temporal lobe finding mentioned on the CT Brain 05/19/2025 is not appreciated on the MRI brain. /[place]
[2025-05-19] MEDS ORDERED: IOHEXOL-350 75 ML VIAL IV ONE (16:15)
--- NOTE | 2025-05-19 17:35 | HMCIMG ---
EXAM: CTA Neck with and without Intravenous Contrast. CLINICAL HISTORY: Stroke like symptoms, Vertigo and dizziness TECHNIQUE: Axial CTA images of the neck performed with and without intravenous contrast in the arterial phase. Coronal and sagittal reformatted images were generated and reviewed. 3-D reformatted images generated on an independent workstation were also reviewed. NASCET criteria were used in assessment of stenosis. CONTRAST: Contrast injected without incident. COMPARISON: None provided. FINDINGS: VASCULATURE: Internal carotid arteries: No stenosis by NASCET criteria. No dissection or occlusion. Common carotid arteries: No significant stenosis. No dissection or occlusion. External carotid arteries: Patent. Vertebral arteries: No significant stenosis. No dissection or occlusion. Soft tissues: No acute finding. Bones: No acute osseous abnormality. IMPRESSION: Unremarkable CTA of the neck. /[place]
[2025-05-19] MEDS ORDERED: MECL25TA39 PO (18:18)
[2025-05-19] MEDS ORDERED: DIAZ2TAB PO (18:18)
--- NOTE | 2025-05-19 19:01 | HP ---
[facility] HISTORY [facility] PHYSICAL Date of Service: May 19, 2025 Time of Service: 18:52 HISTORY OF PRESENT ILLNESS: 64-year-old male with past medical history of GERD who presented to the hospital secondary to episodes of vertigo. Patient states his symptoms started early in the morning when he noticed that he had a spinning sensation. He felt the room was spinning. He felt nauseated and fatigued. Denied any vomiting, chest pain, abdominal pain shortness of breath, dysuria, lower or upper extremity weakness, facial numbness, dysarthria, headache, neck pain, diarrhea. Denied any falls, syncopal episode. Denied any issues with chewing. Denied any recent rhinorrhea, URI, cough, fever, chills. Denied any earache, hearing loss, vision changes. Since the symptoms started he has been feeling fatigued. Patient thereafter came to the hospital further evaluation In the ED patient's temperature was 97.7, heart rate was 55, blood pressure was 187/73, patient was saturating 96% on room air. Patient underwent a CT head which showed Ill-defined hypodense area in the right temporal lobe, possibly artifactual versus acute infarct. No acute intracranial hemorrhage or mass effect. Patient had MRI done in the ED which showed no evidence of acute infarction, mass, hemorrhage. He also underwent a CT angio of the head and neck which showed no hemodynamically significant occlusion. Patient received meclizine and diazepam initially which improved his symptoms. Patient was re-evaluated later by ED physician and felt his symptoms were returning. The patient was thereafter recommended to be admitted to the hospital for further evaluation. REVIEW OF SYSTEMS CONSTITUTIONAL: Denies fevers, chills, or night sweats. No unintentional weight loss reported. Positive for fatigue NEUROLOGICAL: Denies headache, amaurosis fugax, motor weakness, sensory deficit, gait abnormalities, or tremors. Positive for vertigo/spinning sensation ENT: No hearing loss, otalgia, otorrhea, rhinitis, rhinorrhea, hoarseness, or sore throat. CARDIOVASCULAR: Denies any exertional angina, dyspnea on exertion, orthopnea, paroxysmal nocturnal dyspnea, palpitations, life-threatening arrhythmias, claudication. PULMONARY: Denies any shortness of breath, cough, phlegm/sputum, hemoptysis, pleuritic chest pain. GASTROINTESTINAL: Denies any type of dysphagia to either liquids or solids. Denies nausea, vomiting, pyrosis, early satiety, abdominal pain, diarrhea, constipation, or changes in stool consistency or caliber. Denies coffee-ground emesis, hematemesis, hematochezia, or melanotic stools. GENITOURINARY: Denies frequency, urgency, nocturia, hematuria or incontinence (Storage/Irritative symptoms.) Low urinary stream, straining to void, urinary intermittency or hesitancy, splitting of the voiding stream, terminal dribbling. ENDOCRINOLOGIC: Denies polyuria, polydipsia, polyphagia or heat/cold intolerances. HEMATOLOGIC: Denies thrombophilia/previous clots, or coagulopathy/bleeding disorders. ONCOLOGIC: Denies personal history of malignancy. DERMATOLOGIC: Denies rashes or pruritus. PSYCHIATRIC: Denies any suicidal or homicidal ideation. Denies hallucinations. PAST MEDICAL HISTORY: GERD, insomnia PAST SURGICAL HISTORY: Denied any previous surgical history PAST SOCIAL HISTORY: Denied any smoking, alcohol, drug use FAMILY HISTORY: Denied any pertinent family history Coded Allergies: No Known Drug Allergies (Verified Allergy, Unknown, 05/25/17) PHYSICAL EXAM GENERAL APPEARANCE: The patient is awake, alert, and oriented, in no acute cardiopulmonary distress. NEUROLOGICAL: Cranial nerves II-XII grossly intact. Motor is 5/5 in bilateral upper and lower extremities proximal to distal. No sensory deficits. HEENT: Face is symmetric. Pupils are equal and reactive. Extraocular movements are intact. Has nystagmus with lateral gaze NECK: Supple. No JVD. No thyromegaly. No submental, submandibular, pre- /postauricular, occipital or supraclavicular lymphadenopathy. CHEST: Normal chest expansion. No Telemetry. LUNGS: Absence of any rales, rhonchi or any wheezing. CARDIOVASCULAR: Regular. S1 and S2 normal. No appreciable rubs, murmurs or gallops. ABDOMEN: Soft, nontender, and nondistended. There is no rebound, voluntary guarding, or rigidity. : Deferred. No Johnson. EXTREMITIES: Non-edematous and not cyanotic. No clubbing. Good capillary refill. SKIN: No skin breakdown. Vital Sign (Last 24 Hours) 05/19/25 17:59 Temp 97.9 Pulse 59 Resp 16 B/P (MAP) 123/69 Pulse Ox 96 O2 Delivery Room Air* O2 Flow Rate 0 FiO2 21 LABS: Laboratory: Test 05/19/25 10:57 05/19/25 10:48 Range/Units Urine Color LIGHT-YELLOW YELLOW Urine Appearance CLEAR CLEAR Urine pH 6.0 5.0-8.0 Urine Specific [place] 1.020 1.001-1.031 Urine Protein NEGATIVE NEGATIVE mg/dL Urine Glucose (UA) NEGATIVE NEGATIVE mg/dL Urine Ketones NEGATIVE NEGATIVE mg/dL Urine Occult Blood NEGATIVE NEGATIVE Urine Nitrate NEGATIVE NEGATIVE Urine Bilirubin NEGATIVE NEGATIVE mg/dL Urine Urobilinogen 0.2 0.2-1.0 mg/dL Urine Leukocyte Esterase NEGATIVE NEGATIVE Carrie/uL Urine RBC 0-1 0-1 /HPF Urine WBC 0-1 0-1 /HPF Urine Bacteria None None Seen /HPF White Blood Count 7.6 4.8-10.8 K/uL Red Blood Count 5.25 4.50-6.20 MIL/uL Hemoglobin 16.7 14.0-18.0 g/dL Hematocrit 48.1 42-54 % Mean Corpuscular Volume 91.6 79-99 fL Mean Corpuscular Hemoglobin 31.8 27.0-33.0 pg Mean Corpuscular Hemoglobin Concent 34.7 32.0-36.0 g/dL Red Cell Distribution Width 11.8 11.0-15.5 % Platelet Count 206 130-400 K/uL Mean Platelet Volume 10.2 7.5-10.5 fL Immature Granulocyte % (Auto) 0.4 0-1 % Neutrophils (%) (Auto) 73.0 40.0-77.0 % Lymphocytes (%) (Auto) 19.1 L 21.0-51.0 % Monocytes (%) (Auto) 5.5 3.0-13.0 % Eosinophils (%) (Auto) 1.7 0.0-8.0 % Basophils (%) (Auto) 0.3 0.0-5.0 % Neutrophils # (Auto) 5.5 1.8-7.7 K/uL Lymphocytes # (Auto) 1.5 1.0-4.8 K/uL Monocytes # (Auto) 0.4 0.1-1.0 K/uL Eosinophils # (Auto) 0.13 0.00-0.70 K/uL Basophils # (Auto) 0.02 0.00-0.20 K/uL Absolute Immature Granulocyte (auto 0.03 0-1 K/uL Nucleated Red Blood Cells 0.0 0.0-0.19 % Sodium Level 139 136-145 mmol/L Potassium Level 4.1 3.5-5.1 mmol/L Chloride Level 104 101-111 mmol/L Carbon Dioxide Level 30 21-32 mmol/L Blood Urea Nitrogen 15 7-18 mg/dL Creatinine 1.1 0.5-1.3 mg/dL Glomerular Filtration Rate Calc 75 >90 mL/min Random Glucose 125 H 70-105 mg/dL Total Calcium 8.7 8.5-10.1 mg/dL Troponin I High Sensitivity 9 4-75 ng/L DIAGNOSTICS / RADIOLOGY: [ ] ASSESSMENT: Suspected BPPV POA Hypertension GERD PLAN: - patient to be admitted to medical-surgical unit with telemetry -in reference to suspected BPPV. We will request PT evaluation. Also obtain a echocardiogram. The patient's MRI and CT angiogram were negative for stroke. Start meclizine for vertigo 25 mg t.i.d. p.r.n.. -in reference to hypertension. We will closely monitor blood pressure. The patient's blood pressure controlled when seen at bedside. Consider antihypertensive based on patient's clinical status. -check a TSH, A1c, procaine, CRP -start NS for gentle hydration -further orders per hospitalization course. Advanced Care Planning Which of the following were discussed: Hospice care: Yes __ No _x_ Therapeutic options: Yes __ No __ Advance directives: Yes __ No __ Other discussions: Discussed with who?: patient (Patient, family or surrogates) Voluntary nature of this service was explained to the patient? Yes _x_ No __ Amount of time spent: 25 minutes STAR Bonilla MD, MD May 19, 2025 19:01
[2025-05-19] MEDS: FAMOTIDINE 20MG VIAL IV SCH (20:26)
[2025-05-19 21:55] VITALS: BP 157/79; PULSE 58; RESP 20; TEMP 97.8
[2025-05-19 22:00] VITALS: O2SAT 98
[2025-05-20 04:00] VITALS: BP 119/70; PULSE 52; RESP 16; TEMP 98.3
[2025-05-20 05:53] LABS: IMMATURE GRANULOCYTE ABSOLUTE 0.04 K/uL (0-1); NUCLEATED RED BLOOD CELLS 0.0 % (0.0-0.19); PLATELET COUNT (AUTO) 204 K/uL (130-400); RED BLOOD CELL COUNT(AUTO) 4.85 MIL/uL (4.50-6.20); RED CELL DISTRIBUTION WIDTH 11.9 % (11.0-15.5); WHITE BLOOD COUNT (AUTO) 10.1 K/uL (4.8-10.8)
[2025-05-20 06:09] LABS: CREATININE 1.3 mg/dL (0.5-1.3); GLOMERULAR FILTR. RATE CALC 62.0 mL/min (>90); GLUCOSE,RANDOM 104.0 mg/dL (70-105); SODIUM SERUM 137.0 mmol/L (136-145); UREA NITROGEN, BLOOD 12.0 mg/dL (7-18)
[2025-05-20 08:00] VITALS: BP 134/68; PULSE 59; RESP 20; TEMP 97.6
[2025-05-20 10:39] VITALS: O2SAT 99
[2025-05-20] MEDS ORDERED: FAMOTIDINE 20MG VIAL IV SCH (11:00)
[2025-05-20 12:00] VITALS: BP 146/77; PULSE 60; RESP 18; TEMP 98
[2025-05-20] MEDS: FAMOTIDINE 20MG VIAL IV SCH (12:24)
[2025-05-20] MEDS: 0.9%NACL 1000ML 1,000 ML IV SCH (12:25)
--- NOTE | 2025-05-20 12:34 | NUR ---
DCP: HOME Pt currently lives with his sps Ene Shipman [phone], son, and dgt. Pt does not report any insecurities with food, senior care, and/or utilities. Pt is gainfully employed. Pt does not have any DME, home health, or provider services. PCP is Dr. Alexey Edwards and uses [facility] for any RX needs. At [place] pt will want to go home and family can assist with transportation. Addendum: 05/20/25 at 1236 by JANELLE CONTE SS Amended: Links added.
--- NOTE | 2025-05-20 14:00 | HMCSR ---
APPROVED REPORT EXAM: Two-dimensional and M-mode echocardiogram with Doppler and color Doppler. INDICATION ICD: Assess for valvulopathy 2D Dimensions RVDd4.0 cmLVEF(%)66.9 (>50%)LVED Vol(simp.)99.0 mL IVSd0.8 (0.7-1.1cm)FS(%)37 %LVES Vol(simp.)36.0 mL LVDd4.5 (3.8-5.6cm)LA (2D)4.2 (1.6-4.0cm)LVEF(%, simp.)63 % PWd1.3 (0.7-1.1cm)Ao Root(2D)3.5 (2.0-3.7cm)LA ESV INDEX (BP)21.31 mL/m2 IVSs1.1 cmLVOT diam2.2 (1.8-2.4cm) LVDs2.8 (2.5-4.0cm)IVC diam1.4 cm PWs1.1 cm Deformation Strain Apical 4-18.2 % Apical 2-17.6 % Apical 3-19.7 % Global Strain-18.5 % M-Mode Dimensions EPSS0.7 cm LA (MM)4.1 (1.6-4.0cm) Ao Root(MM)2.9 (2.0-3.7cm) Aortic Valve AoV Vmax1.1 m/Nicole Peak GR5.2 mmHgLVOT Vmax0.9 m/s AoV VTI0.3 mAo Mean GR2.7 mmHgLVOT VTI0.22 m RUCHI (VMAX)3.02 cm2AVA (VTI) 3.2 cm2 Mitral Valve MV E Vmax68.7 cm/sDECEL Hzeo325 ms MV A Vmax52.2 cm/sP 1/2 T48 ms E/A ratio1.3MVA (PHT)4.5 cm2 TDI E/E' Qofmml73.3E/E' Lateral9.7 Medial E' Peak V6.69 cm/sLateral E' Peak V7.07 cm/s Pulmonary Valve PV Vmax1.0 m/sPV VTI0.22 mPV Mean GR2.1 mmHg PV Peak GR3.7 mmHg Tricuspid Valve RAP (EST) 8 mmHgRVSP8.0 mmHg Left Ventricle The left ventricle is normal size. GLS -19.0% There is normal left ventricular wall thickness. LVEF i s 60-65%. The left ventricular diastolic function is normal. Right Ventricle The right ventricle is normal size. The right ventricular systolic function is normal. Atria The left atrium size is normal. The right atrium size is normal. Aortic Valve The aortic valve is normal in structure. No aortic regurgitation is present. There is no aortic valvu lar stenosis. Mitral Valve The mitral valve is normal in structure. There is no mitral valve regurgitation noted. There is no mi tral valve stenosis. Tricuspid Valve The tricuspid valve is normal in structure. There is no tricuspid valve regurgitation noted. Pulmonic Valve The pulmonary valve is normal in structure. There is no pulmonic valvular regurgitation. Great Vessels The aortic root is normal in size. The IVC is normal in size and collapses <50% with inspiration. Pericardium There is no pericardial effusion. Other Information Quality : Adequate Conclusion LVEF is 60-65%. GLS -19.0%
--- NOTE | 2025-05-20 14:00 | NUR ---
PERFORMED VOR EXERCISES IN SITTING/STANDING AND WALKING WITH MINIMAL SIGNS OF VERTIGO. ALSO PERFORMED AMANDA-HALLPIKE MANEUVER WITH POSITIVE RESULTS TO RIGHT SIDE WITH NYSTAGMUS NOTED. TESTED THE LEFT SIDE WITH NO SIGNS OF NYSTAGMUS. EDUCATED PATIENT TO FOLLOW UP AN OUT PATIENT PT FOR VESTIBULAR TREATMENTS IF SYMPTOMS PERSIST. Addendum: 05/20/25 at 1742 by KARL DOE PT Amended: Links added.
[2025-05-20 16:00] VITALS: BP 138/69; PULSE 56; RESP 18; TEMP 98
--- NOTE | 2025-05-20 16:18 | DS ---
Discharge Summary Hospital Course Summary: Patient is a 64-year-old male with past medical history of GERD who presented to the hospital secondary to episodes of vertigo. Patient states his symptoms started early in the morning when he noticed that he had a spinning sensation. He felt the room was spinning. He felt nauseated and fatigued. Denied any vomiting, chest pain, abdominal pain shortness of breath, dysuria, lower or upper extremity weakness, facial numbness, dysarthria, headache, neck pain, diarrhea. Denied any falls, syncopal episode. Denied any issues with chewing. Denied any recent rhinorrhea, URI, cough, fever, chills. Denied any earache, hearing loss, vision changes. Since the symptoms started he has been feeling fatigued. Patient thereafter came to the hospital further evaluation. Patient underwent a CT head which showed Ill-defined hypodense area in the right temporal lobe, possibly artifactual versus acute infarct. No acute intracranial hemorrhage or mass effect. Patient had MRI done in the ED which showed no evidence of acute infarction, mass, hemorrhage. He also underwent a CT angio of the head and neck which showed no hemodynamically significant occlusion. Patient received meclizine and diazepam initially which improved his symptoms. Patient was re-evaluated later by ED physician and felt his symptoms were returning. The patient was thereafter recommended to be admitted to the hospital for further evaluation. Patient had an echo performed which showed a LVEF of 60-65% and normal left ventricular diastolic function. Patient had a PT evaluation performed where the patient was able to walk and had minimum dizziness. He was placed on a bolus of normal saline has he complained of being dehydrated. His TSH came back normal at 2.63 while his A1c was at 5.8 Procalcitonin less than 0.05 while his CRP was high at 4.60. His urine a urinalysis was negative for UTI. Patient feeling much better with his vitals stable except his blood pressure which was at 146/77, so going to discharge him with meclizine 25 mg and advised to see his PCP and an ENT after discharge. Going to discharge him on his home medication of metoprolol. Procedure(s): [place] [id number] [place] [address] IMAGING REPORT Addendum PATIENT: PAYTON GILL MR#: [id number] : 1960 SEX: M AGE: 64 LOCATION: [facility] ORDER 34 STATUS: REG ER REPORT#: [id number] SERVICE 1034 REASON: Dizziness, lightheaded ORDERING PHYSICIAN: LETTY FOX PROCEDURE: HEAD WO - CT HEAD/BRAIN W/O CONTRAST ADDENDUM REPORT ADDENDUM: Results were shared by telephone at 14:23 pm on 05-19-25 and acknowledged by Letty Kan /[place] EXAM: CT Head Without IV contrast. CLINICAL HISTORY: Dizziness, lightheaded TECHNIQUE: Axial computed tomography images of the head/brain without intravenous contrast. COMPARISON: Study dated 18/11/2024 FINDINGS: BRAIN: An ill-defined hypodense area in the right temporal lobe possibility of artifact more likely than an acute infarct. Dilatation of the ventricular system with prominence of basal cisterns, sulci, and cerebellar folia, suggestive of cerebral and cerebellar atrophic changes. No evidence of acute hemorrhage. No mass lesion. No midline shift or extra-axial collections. ORBITS: The orbits are unremarkable. SINUSES AND MASTOIDS: The paranasal sinuses and mastoid air cells are clear. BONES: No fracture. SOFT TISSUES: Unremarkable. IMPRESSION: 1. Ill-defined hypodense area in the right temporal lobe, possibly artifactual versus acute infarct. Recommend MRI for further evaluation. 2. No acute intracranial hemorrhage or mass effect /[place] DICTATED BY: BRIANNA HUTCHISON Jr., MD DATE: 05/19/25 143 ELECTRONICALLY SIGNED BY: DATE: EXAM: CT Head Without IV contrast. CLINICAL HISTORY: Dizziness, lightheaded TECHNIQUE: Axial computed tomography images of the head/brain without intravenous contrast. COMPARISON: Study dated 18/11/2024 FINDINGS: BRAIN: An ill-defined hypodense area in the right temporal lobe possibility of artifact more likely than an acute infarct. Dilatation of the ventricular system with prominence of basal cisterns, sulci, and cerebellar folia, suggestive of cerebral and cerebellar atrophic changes. No evidence of acute hemorrhage. No mass lesion. No midline shift or extra-axial collections. ORBITS: The orbits are unremarkable. SINUSES AND MASTOIDS: The paranasal sinuses and mastoid air cells are clear. BONES: No fracture. SOFT TISSUES: Unremarkable. IMPRESSION: 1. Ill-defined hypodense area in the right temporal lobe, possibly artifactual versus acute infarct. Recommend MRI for further evaluation. 2. No acute intracranial hemorrhage or mass effect /[place] DICTATED BY: BRIANNA HUTCHISON Jr., MD DATE: 05/19/251406 ELECTRONICALLY SIGNED BY: BRIANNA HUTCHISON Jr., MD DATE: 05/19/251406 [address] [id number] IMAGING REPORT Signed PATIENT: PAYTON GILL MR#: [id number] : 1960 SEX: M AGE: 64 LOCATION: [facility] ORDER 1342 STATUS: [facility] REPORT#: [id number] SERVICE 1335 REASON: Stroke like symptoms, Vertigo and Dizziness ORDERING PHYSICIAN: RADHA MACIAS MD PROCEDURE: BRAIN WO - MR BRAIN WO CON EXAM: MR Brain without Intravenous Contrast. CLINICAL HISTORY: 64-year-old male with stroke-like symptoms. TECHNIQUE: Magnetic resonance images of the brain without intravenous contrast in multiple planes. CONTRAST: None. COMPARISON: CT Brain 05/19/2025. FINDINGS: BRAIN: No restricted diffusion to indicate acute infarction. No intracranial mass or hemorrhage. No midline shift or extra-axial fluid collection. No cerebellar tonsillar ectopia. No abnormal enhancement. The central arterial and venous flow voids are patent. VENTRICLES: No hydrocephalus. ORBITS: The orbits are normal. SINUSES AND MASTOIDS: The sinuses and mastoid air cells are clear. BONES: No acute fracture or focal osseous lesion. The right temporal lobe finding mentioned on the CT Brain 05/19/2025 is not appreciated on the MRI brain. IMPRESSION: 1. No evidence of acute infarction, intracranial mass, or hemorrhage. 2. Right temporal lobe finding mentioned on the CT Brain 05/19/2025 is not appreciated on the MRI brain. /[place] DICTATED BY: ANA FELIX MD DATE: 05/19/251701 ELECTRONICALLY SIGNED BY: ANA FELIX MD DATE: 05/19/251701 [address] [id number] IMAGING REPORT Signed PATIENT: PAYTON GILL MR#: [id number] : 1960 SEX: M AGE: 64 LOCATION: [facility] ORDER 1409 STATUS: [facility] REPORT#: [id number] SERVICE 1351 REASON: Stroke like symptoms, Vertigo and dizziness ORDERING PHYSICIAN: RADHA MACIAS MD PROCEDURE: CTA [facility] - CT ANGIO HEAD AND NECK EXAM: CTA Neck with and without Intravenous Contrast. CLINICAL HISTORY: Stroke like symptoms, Vertigo and dizziness TECHNIQUE: Axial CTA images of the neck performed with and without intravenous contrast in the arterial phase. Coronal and sagittal reformatted images were generated and reviewed. 3-D reformatted images generated on an independent workstation were also reviewed. NASCET criteria were used in assessment of stenosis. CONTRAST: Contrast injected without incident. COMPARISON: None provided. FINDINGS: VASCULATURE: Internal carotid arteries: No stenosis by NASCET criteria. No dissection or occlusion. Common carotid arteries: No significant stenosis. No dissection or occlusion. External carotid arteries: Patent. Vertebral arteries: No significant stenosis. No dissection or occlusion. Soft tissues: No acute finding. Bones: No acute osseous abnormality. IMPRESSION: Unremarkable CTA of the neck. /[place] DICTATED BY: RABIA FERNANDEZ MD DATE: 05/19/251834 ELECTRONICALLY SIGNED BY: RABIA FERNANDEZ MD DATE: 05/19/251834 [facility] [address] [place], [place] [id number] IMAGING REPORT Signed PATIENT: PAYTON GILL MR#: [id number] : 1960 SEX: M AGE: 64 LOCATION: [facility] ORDER 185 STATUS: ADM IN REPORT#: [id number] SERVICE 0720 REASON: ASSESS FOR VALVULOPATHY ORDERING PHYSICIAN: STAR JACOBS MD PROCEDURE: ECHO CMP - ECHO 2-D COMPLETE APPROVED REPORT EXAM: Two-dimensional and M-mode echocardiogram with Doppler and color Doppler. INDICATION ICD: Assess for valvulopathy 2D Dimensions RVDd 4.0 cm LVEF(%) 66.9 (>50%) LVED Vol(simp.) 99.0 mL IVSd 0.8 (0.7-1.1cm) FS(%) 37 % LVES Vol(simp.) 36.0 mL LVDd 4.5 (3.8-5.6cm) LA (2D) 4.2 (1.6-4.0cm) LVEF(%, simp.) 63 % PWd 1.3 (0.7-1.1cm) Ao Root(2D) 3.5 (2.0-3.7cm) LA ESV INDEX (BP) 21.31 mL/m2 IVSs 1.1 cm LVOT diam 2.2 (1.8-2.4cm) LVDs 2.8 (2.5-4.0cm) IVC diam 1.4 cm PWs 1.1 cm Deformation Strain Apical 4 -18.2 % Apical 2 -17.6 % Apical 3 -19.7 % Global Strain -18.5 % M-Mode Dimensions EPSS 0.7 cm LA (MM) 4.1 (1.6-4.0cm) Ao Root(MM) 2.9 (2.0-3.7cm) Aortic Valve AoV Vmax 1.1 m/s Ao Peak GR 5.2 mmHg LVOT Vmax 0.9 m/s AoV VTI 0.3 m Ao Mean GR 2.7 mmHg LVOT VTI 0.22 m RUCHI (VMAX) 3.02 cm2 RUCHI (VTI) 3.2 cm2 Mitral Valve MV E Vmax 68.7 cm/s DECEL Time 178 ms MV A Vmax 52.2 cm/s P 1/2 T 48 ms E/A ratio 1.3 MVA (PHT) 4.5 cm2 TDI E/E' Medial 10.3 E/E' Lateral 9.7 Medial E' Peak V 6.69 cm/s Lateral E' Peak V 7.07 cm/s Pulmonary Valve PV Vmax 1.0 m/s PV VTI 0.22 m PV Mean GR 2.1 mmHg PV Peak GR 3.7 mmHg Tricuspid Valve RAP (EST) 8 mmHg RVSP 8.0 mmHg Left Ventricle The left ventricle is normal size. GLS -19.0% There is normal left ventricular wall thickness. LVEF is 60-65%. The left ventricular diastolic function is normal. Right Ventricle The right ventricle is normal size. The right ventricular systolic function is normal. Atria The left atrium size is normal. The right atrium size is normal. Aortic Valve The aortic valve is normal in structure. No aortic regurgitation is present. There is no aortic valvular stenosis. Mitral Valve The mitral valve is normal in structure. There is no mitral valve regurgitation noted. There is no mitral valve stenosis. Tricuspid Valve The tricuspid valve is normal in structure. There is no tricuspid valve regurgitation noted. Pulmonic Valve The pulmonary valve is normal in structure. There is no pulmonic valvular regurgitation. Great Vessels The aortic root is normal in size. The IVC is normal in size and collapses <50% with inspiration. Pericardium There is no pericardial effusion. Other Information Quality : Adequate Conclusion LVEF is 60-65%. GLS -19.0% DICTATED BY: LOGAN FLOYD MD DATE: 05/20/25 1025 ELECTRONICALLY SIGNED BY: LOGAN FLOYD MD DATE: 05/20/25 1400 Assessment/Plan: ASSESSMENT: Suspected BPPV POA Hypertension GERD Admission Date: 05/19/25 Discharge Date: 05/20/25 Disposition: Home Condition: Stable Activity: As tolerated Home medications: Continued Discharge medications: Meclizine 25 mg t.i.d. Follow-up appointment: Follow up with PCP within 2-3 days of discharge Follow up with ENT within 2 weeks of discharge We reinforced the importance of medication adherence and follow-up appointments. Discharge Instructions: Take medication as prescribed Careful when getting out of bed Call 911 or go to ER if you develop fever, severe abdominal pain or bloating, nausea or vomiting that does not improve, sudden shortness of breath or chest pain Home Medications: Active Scripts Diazepam (Valium) 2 Mg Tablet, 1 TAB PO TIDP PRN for dizziness for 5 Days, #15 TAB 0 Refills Prov:DARWIN WALL DO 05/19/25 Meclizine HCl (Medi-Meclizine) 25 Mg Tablet, 1 TAB PO TID for dizziness for 10 Days, #30 TAB 0 Refills Prov:DARWIN WALL DO 05/19/25 Amlodipine Besylate (Norvasc 5Mg Tab) 5 Mg Tablet, 5 MG PO DAILY for 30 Days, #30 TAB Prov:MAHESH VIRGEN NP 06/29/23 Cefuroxime Axetil (Cefuroxime) 500 Mg Tablet, 500 MG PO BID for 5 Days, #10 TAB Prov:MAHESH VIRGEN NP 06/28/23 Tamsulosin HCl (Flomax) 0.4 Mg Cap.er.24h, 0.4 MG PO DAILY for 7 Days, #7 CAPSULE. Prov:CARTER ELLIOTT MD 07/31/22 Naproxen (Naproxen) 375 Mg Tablet., 375 MG PO BID for 7 Days, #14 TAB Prov:CARTER ELLIOTT MD 07/31/22 Continued Medications: Meclizine HCl (Medi-Meclizine) 25 Mg Tablet 1 TAB PO TID for dizziness for 30 Days, #90 TAB 0 Refills (This prescription has been renewed) Discontinued Medications: Amlodipine Besylate (Norvasc 5Mg Tab) 5 Mg Tablet 5 MG PO DAILY for 30 Days, #30 TAB Cefuroxime Axetil (Cefuroxime) 500 Mg Tablet 500 MG PO BID for 5 Days, #10 TAB Diazepam (Valium) 2 Mg Tablet 1 TAB PO TIDP PRN for dizziness for 5 Days, #15 TAB 0 Refills Naproxen (Naproxen) 375 Mg Tablet. 375 MG PO BID for 7 Days, #14 TAB Tamsulosin HCl (Flomax) 0.4 Mg Cap.er.24h 0.4 MG PO DAILY for 7 Days, #7 CAPSULE. Time spent arranging discharge: 31-60 minutes ATTESTATION BY PHYSICIAN I have seen and examined the patient. I reviewed the documentation, medical decision making, and treatment plan as noted by the resident provider above. I agree with the findings and plan of care. Pascual Metcalf MD, ABHINAV MD May 20, 2025 16:18
[2025-05-20] MEDS ORDERED: MECL25TA39 PO (16:41)
--- NOTE | 2025-05-20 18:30 | NUR ---
PATIENT DISCHARGED PERIPHERAL IV DISCONTINUED WITHOUT COMPLICATIONS CATHETER INTACT. DISCHARGE INSTRUCTIONS GIVEN. PRESCRIPTIONS FAXED TO PHARMACY. PATIENT AWARE TO F/U WITH PCP AND ENT. ALL QUESTIONS ANSWERED. PATIENT DENIES PAIN AT THIS TIME. PATIENT TAKEN DOWN BY WHEELCHAIR.
== END 2025-05-20 18:43 | disposition home or self-care (01) ==
LOC: EDH 10:14 → EDHIP 18:46 → INTOOBSV 18:46 → 4DH 21:37 → UNDODISIN 23:45
PROVIDERS: ADMIT Internal Medicine; ATTEND Internal Medicine
DX: I10 Essential (primary) hypertension (principal); K21.9 Gastro-esophageal reflux disease without esophagitis; E86.0 Dehydration; R42 Dizziness and giddiness; R11.0 Nausea; Z79.899 Other long term (current) drug therapy; Z98.890 Other specified postprocedural states
CPT/HCPCS: 96376 ×2; 96361 ×2; 96375; 99285; 83036; 84443; 84484; 80048 ×2; 85025 ×2; 86140; 81001; 36415 ×2; 70450; 70496; 70498; 70551; 96374; 93005; 84145; 93306; 93356; 97161; 97116; G0378 ×24; J3490 ×2; J3360; J2405 ×2; Q9967